=== PATIENT | female | born 1950 | race Hispanic/Latino ===

== ENCOUNTER 2018-12-17 15:27 | Emergency (ER) | payer OTHER, MEDICARE ==
[~2018-12-17] VITALS: Ht 165.1 cm; Wt 74.8 kg
[2018-12-17] MEDS ORDERED: CLONIDINE HCL 0.1 MG TAB PO ONE (15:45)
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
[2018-12-17 19:50] VITALS: BP 144/78
== END 2018-12-17 18:23 | disposition home or self-care (01) ==
LOC: FSED 15:27
DX: S16.1XXA Strain of muscle, fascia and tendon at neck level, initial encounter (principal); S43.51XA Sprain of right acromioclavicular joint, initial encounter; S43.52XA Sprain of left acromioclavicular joint, initial encounter; V49.50XA Passenger injured in collision with unspecified motor vehicles in traffic accident, initial encounter; Y92.410 Unspecified street and highway as the place of occurrence of the external cause
CPT/HCPCS: 70450; 72125; 99283